=== PATIENT | male | born 1970 | race Caucasian/White ===

== ENCOUNTER 2023-12-29 05:42 | Day surgery (SDC) | payer OTHER ==
[2023-12-24 15:08] LABS: MEAN PLATELET VOLUME 8.2 FL (7.4-10.4); MONOCYTES # (AUTO) 0.9 X10'3 (0-0.9); PRE OP HEMOGLOBIN 15.4 g/dL (14.0-17.9)
[2023-12-24 15:11] LABS: BASOPHILS # (AUTO) 0.1 X10'3 (0-0.2); BASOPHILS % (AUTO) 0.5 % (0-1); EOSINOPHILS # (AUTO) 0.5 X10'3 (0-0.9); EOSINOPHILS % (AUTO) 4.5 % (0-6); LYMPHOCYTES # (AUTO) 1.5 X10'3 (1.1-4.8); LYMPHOCYTES % (AUTO) 14.4 % (21-51); MEAN CORPUSCULAR HGB CONC 34.5 g/dL (33.0-36.5); MEAN CORPUSCULAR VOLUME 89.8 FL (78-98); MONOCYTES % (AUTO) 8.7 % (2-12); NEUTROPHILS # (AUTO) 7.7 X10'3 (1.8-7.7); NEUTROPHILS % (AUTO) 71.9 % (42-75); PRE OP HEMATOCRIT 44.5 % (42.0-52.0); PRE OP PLATELET COUNT 287 X10'3 (140-440); PRE OP WHITE BLOOD COUNT 10.8 10'3 (4.8-10.8); RED BLOOD COUNT 4.95 X10'6 (4.70-6.10); RED CELL DISTRIBUTION WIDTH 12.9 % (11.5-14.5)
[2023-12-24 15:25] LABS: ALBUMIN 3.7 G/DL (3.4-5.0); ALBUMIN/GLOBULIN RATIO 1.1 (1.1-1.5); ALKALINE PHOSPHATASE 67 IU/L (46-116); BLOOD UREA NITROGEN 15 MG/DL (7-18); CHLORIDE 99 MMOL/L (99-107); CREATININE 0.79 MG/DL (0.60-1.10); PRE OP ALT 31 U/L (30-65); PRE OP ANION GAP 7 (8-16); PRE OP AST 32 U/L (10-37); PRE OP GLUCOSE 93 MG/DL (70-104); PRE OP POTASSIUM 4.1 MMOL/L (3.4-5.1); PRE OP SODIUM 135 MMOL/L (135-145); TOTAL PROTEIN 7.2 G/DL (6.4-8.2); eGFR > 90 ML/MIN
[~2023-12-29] VITALS: Ht 188 cm; Wt 101.0 kg
[2023-12-29] VITALS (20 sets, daily range): BP systolic 89–139; BP diastolic 59–89; PULSE 58–89; RESP 11–21; TEMP 98.1; O2SAT 93–100
[~2023-12-29 05:42] MED LIST: HYDR-3686 PO; LISI10TA27 PO
[2023-12-29] MEDS: famotidine 20mg tablet PO ONE (06:19)
[2023-12-29] MEDS: cefazolin 2gm/D5W 100mL 100 ML IV ONE (06:20)
[2023-12-29] MEDS: ringers solution, lacted 1,000 ML IV SCH (06:20)
[2023-12-29] MEDS ORDERED: sevoflurane 250ml liquid IH ONE (07:10)
[2023-12-29] MEDS ORDERED: midazolam 1 mg/ML 2ml injection ONE (07:11)
[2023-12-29] MEDS ORDERED: fentaNYL /PF 50mcg/ml 5ml ampule ONE (07:12)
[2023-12-29] MEDS ORDERED: labetalol 20mg/4ml (5mg/ml) syringe IV PRN (07:15)
[2023-12-29] MEDS ORDERED: ondansetron/PF 4mg/2ml inj IV PRN (07:15)
[2023-12-29] MEDS ORDERED: hydrALAZINE 20mg/ml inj. IV PRN (07:15)
[2023-12-29] MEDS ORDERED: meperidine/PF 25mg/ml syringe IV PRN ×2 (07:15)
[2023-12-29] MEDS ORDERED: ringers solution, lacted 1,000 ML IV SCH (07:15)
[2023-12-29] MEDS ORDERED: proCHLORperazine 10 MG/2 ml inj IV PRN (07:15)
[2023-12-29] MEDS ORDERED: morphine 2 MG/ML inj. syringe IV PRN (07:15)
[2023-12-29] MEDS: BUPIVAcaine/PF 2.5mg/ml (0.25%) 10ml vial ONE (07:36)
[2023-12-29] MEDS: LIDOcaine 1% 30ml preserv. free vial ONE (07:36)
[2023-12-29] MEDS ORDERED: rocuronium 10mg/ml inj IV ONE (08:23)
[2023-12-29] MEDS ORDERED: propofol inj 20 ML IV ONE (08:23)
[2023-12-29] MEDS ORDERED: ondansetron/PF 4mg/2ml inj ONE (08:23)
[2023-12-29] MEDS ORDERED: LIDOcaine 2% (20mg/ml) 5ml vial ONE (08:23)
[2023-12-29] MEDS ORDERED: dexamethasone sod phosphate 4mg/ml inj. ONE (08:23)
[2023-12-29] MEDS ORDERED: glycopyrrolate 0.2mg/ml inj ONE (08:39)
[2023-12-29] MEDS ORDERED: neostigmine methylsulfate 1 MG/ML 10ml vial ONE (08:39)
[2023-12-29] MEDS: ketorolac trometh. 30mg/ml inj. IV ONE (09:42)
[2023-12-29] MEDS: acetaminophen 1,000mg/100ml IV 100 ML IV ONE (09:43)
[2023-12-29] MEDS: morphine 4 MG/ML inj SYRINge IV PRN (10:40)
[2023-12-29] MEDS: HYDROcodone/acetaminophen 5mg/325mg tablet PO PRN (11:10)
[2023-12-29] MEDS: LidoCAINE 2% Topical Jelly 11mL syringe (UROJET) TOP ONE (13:23)
== END 2023-12-29 14:27 | disposition home or self-care (01) ==
LOC: PAS 05:42
PROVIDERS: ATTEND Surgery
DX: K40.90 Unilateral inguinal hernia, without obstruction or gangrene, not specified as recurrent (principal); I10 Essential (primary) hypertension; E78.5 Hyperlipidemia, unspecified; K21.9 Gastro-esophageal reflux disease without esophagitis; I20.9 Angina pectoris, unspecified; F41.9 Anxiety disorder, unspecified; I25.2 Old myocardial infarction; Z79.899 Other long term (current) drug therapy; Z98.49 Cataract extraction status, unspecified eye; Z98.52 Vasectomy status; Z80.9 Family history of malignant neoplasm, unspecified
CPT/HCPCS: 36415; 49592; 49650; 80053; 82948; 85025; 93005; C1781; J0131; J0690; J1100; J1885; J2250; J2270; J2405; J2704; J2710; J3010; J3490; J7030; J7120; S2900; Z7506; Z7508; Z7512; A4215; A4314; A4618